=== PATIENT | male | born 1945 | race Caucasian/White ===

== ENCOUNTER 2017-03-24 18:32 | Emergency (ER) | payer OTHER, MEDICARE ==
[~2017-03-24] VITALS: Ht 180.3 cm; Wt 76.7 kg
--- NOTE | 2017-03-24 19:44 | ED MVC/FALL/TRAUMA COMPLAINT ---
History of Present Illness General Chief Complaint: Fall Stated Complaint: FALL, LEFT ANKLE Source: patient, family Exam Limitations: no limitations Vital Signs & Intake/Output Vital Signs & Intake/Output Vital Signs Date Time Temp Pulse Resp B/P B/P Pulse O2 O2 Flow FiO2 Mean Ox Delivery Rate 03/24 2022 97.8 58 18 139/67 98 Room Air 03/24 1839 97.9 71 14 137/79 100 Room Air ED Intake and Output 03/25 0000 03/24 1200 Intake Total Output Total Balance Patient 169 lb Weight Weight Reported by Patient Measurement Method Allergies Coded Allergies: lactose (Severe, RASH 01/31/16) tetracycline (Severe, RASH 01/31/16) Triage Note: PT TO ED FOR L LATERAL ANKLE PAIN AFTER A FALL AT HOME [employer]POT. NO DEFORMITY, SWELLING NOTED, NORMAL ROM, +PULSES. PT REFUSES PAIN MEDS IN TRIAGE, GIVEN ICE PACK FOR COMFORT. Triage Nurses Notes Reviewed? yes HPI: Patient is a 71-year-old male presents complaining of left ankle pain, right shoulder pain, right pain. Patient was walking at [employer] when he tripped over a small side causing him to fall and strike his left lateral malleolus against the concrete floor. Injury occurred just prior to arrival. Patient was able to bear weight on his right lower extremity after the injury. Pain severe with attempting weightbearing of the left lower extremity. Patient denies headache injury, loss of consciousness, numbness. (SOHA HAYES) Past History Travel History Traveled to [place] past 21 day No Medical History Any Pertinent Medical History? see below for history EENT: Meniere's disease Respiratory: SLEEP APNEA Renal: nephrolithiasis Blood Disorders: NONE Cancer(s): PROSTATE CA Surgical History Surgical History: non-contributory Psychosocial History What is your primary language Cuban Tobacco Use: Never used ETOH Use: denies use Illicit Drug Use: denies illicit drug use Family History Hx Contributory? No (SOHA HAYES) Review of Systems Review of Systems Constitutional: Reports: no symptoms. Eyes: Reports: no symptoms. Cardiovascular: Denies: chest pain, syncope. Gastrointestinal/Abdominal: Denies: abdominal pain. Musculoskeletal: Reports: see HPI, neck pain (right paraspinal). Denies: back pain. Skin: Reports: no symptoms. Neurological/Psychological: Denies: headache, numbness. (SOHA HAYES) Physical Exam Physical Exam General Appearance: well developed/nourished, alert, awake Head: atraumatic, normal appearance Eyes: Bilateral: normal appearance, PERRL, EOMI. Ears, Nose, Throat, Mouth: hearing grossly normal, moist mucous membrane Neck: normal inspection, supple, full range of motion, no midline tenderness, mild right lateral paraspinal tenderness Respiratory: no respiratory distress Peripheral Pulses: 2+ dorsalis pedis (L) Back: normal inspection, normal range of motion, no vertebral tenderness Extremities: right shoulder: full range of motion, no bony tenderness Right hip: full hip flexion, no significant bony tenderness Left ankle: Tenderness and swelling over the lateral malleolus. Joint stable. Neurologic/Psych: no motor/sensory deficits, awake, alert, oriented x 3 Skin: warm/dry Core Measures ACS in differential dx? No Severe Sepsis Present: No Septic Shock Present: No (SOHA HAYES) Progress Differential Diagnosis: aoritic dissection, abd injury, C/T/L spine injury, ext injury, ICH, pelvis injury, pnemothorax, spinal cord injury Plan of Care: Orders Procedure Date/time Status Durable Medical Equipment 03/24 2022 Active Results of x-rays discussed with patient. No signs of bony injury to the right shoulder or right hip. X-rays deferred. No significant neck tenderness. Discussed with Dr. Macias (SOHA HAYES) Diagnostic Imaging: Viewed by Me: Radiology Read. Discussed w/RAD: Radiology Read. Radiology Impression: no acute abnormality, no fracture, no dislocation (SOHA HAYES) Departure Departure Disposition: HOME OR SELF CARE Condition: Stable Clinical Impression Primary Impression: Contusion of ankle, left Referrals: DANIEL RIOS,REINA Goldman (PCP/Family) CLAU RIOS,ANTHONY Dominguez Additional Instructions: Rest, ice for 20 minutes 4-5 times a day, elevate, wear jayy wrap for support. Follow up with Dr. Mera(orthopedist) if no improvement within 2-3 days. Departure Forms: Customer Survey General Discharge Information (SOHA HAYES) PA/CHILDR[employer] SUPERVISOR Co-Sign Statement Statement: ED Attending supervision documentation- [] I saw and evaluated the patient. I have also reviewed all the pertinent lab results and diagnostic results. I agree with the findings and the plan of care as documented in the PA's/CHILDREN'S [employer]CH[employer] SUPERVISOR's documentation. [X] I have reviewed the ED Record and agree with the PA's/CHILDREN'S [employer]CH[employer] SUPERVISOR's documentation. [] Additions or exceptions (if any) to the PAs/CHILDREN'S [employer]CH[employer] SUPERVISOR's note and plan are summarized below: [] (NOVA RIOS,SHAI)
--- NOTE | 2017-03-24 20:06 | RADIOLOGY REPORT ---
EXAMINATION: XR ANKLE, LEFT CLINICAL INFORMATION: Fall, pain COMPARISON: None TECHNIQUE: AP, lateral, and mortise views of the left ankle. FINDINGS: There is no acute fractures or dislocation of the left ankle. The ankle mortise is normal and symmetric in appearance. The soft tissue is unremarkable. Dorsal and plantar calcaneal spurs are present. IMPRESSION: No acute fracture or dislocation of the left ankle.
[2017-03-24 20:22] VITALS: BP 139/67
== END 2017-03-24 20:35 ==
LOC: ERH 18:32
DX: S90.02XA Contusion of left ankle, initial encounter (principal); W18.09XA Striking against other object with subsequent fall, initial encounter; Y92.512 Supermarket, store or market as the place of occurrence of the external cause; Y93.9 Activity, unspecified
CPT/HCPCS: 73610-LT